=== PATIENT | female | born 2000 | race Caucasian/White ===

== ENCOUNTER 2023-04-20 19:09 | Emergency (ER) | payer BC, SELFPAY ==
--- NOTE | ~2023-04-20 | CT_ITS ---
EXAMINATION: CT abdomen pelvis w con DATE: 04/20/2023 23:08 INDICATION: Periumbilical abdominal pain TECHNIQUE: Computed tomography (CT) of the abdomen and pelvis was performed with 100 mL Omnipaque-350 intravenous contrast. Automated exposure control and iterative reconstruction technique were employe d. The dose-length product was 884.51 mGy-cm. COMPARISON: None FINDINGS: Lung bases are clear. Heart size is normal. No pericardial or pleural effusion. Focal hepatic steatos is at the ligamentum teres. Gallbladder, spleen, pancreas, bilateral adrenal glands and kidneys are n ormal. Bladder, uterus and bilateral adnexa are unremarkable. Bowels including the appendix are marjorie l. No free intraperitoneal gas or fluid. No pathologically enlarged abdominal or pelvic lymphadenopat hy. Tiny fat-containing umbilical hernia. Bones are unremarkable. IMPRESSION: 1. Tiny fat-containing umbilical hernia. No acute intra-abdominal/pelvic process. Reviewed, dictated and finalized at location A. OGICAL SAMPLE [employer]STER IMPRESSION: 1. Tiny fat-containing umbilical hernia. No acute intra-abdominal/pelvic proces s.
[2023-04-20 19:30] VITALS: BP 158/99; PULSE 106; RESP 15; TEMP 37.2; O2SAT 100
[2023-04-20 19:41] LABS: Basophils Absolute Auto 0.1 K/mm3 (0.0-0.1); Basophils Percent Auto 0.6 % (0.2-1.2); Eosinophils Absolute Auto 0.1 K/mm3 (0-0.3); Hematocrit 45.3 % (37.0-47.0); Hemoglobin 15.1 g/dL (12.0-15.0); Immature Granulocyte Absolute 0.02 K/mm3 (0.00-0.031); Immature Granulocyte Percent A 0.3 % (0-0.5); Lymphocytes Absolute Auto 3.52 K/mm3 (0.9-3.2); Lymphocytes Percent Auto 44.7 % (18.3-44.2); Mean Corpuscular HGB Conc 33.3 g/dl (32-36); Mean Corpuscular Hemoglobin 28.6 pg (26-34); Mean Corpuscular Volume 85.8 fl (80-100); Mean Platelet Volume 10.5 fl (7.4-10.4); Monocytes Absolute Auto 0.4 K/mm3 (0.1-0.6); Monocytes Percent Auto 5.2 % (2.6-8.5); Neutrophils Absolute Auto 3.8 K/mm3 (1.3-6.7); Neutrophils Percent Auto 48.2 % (45.5-73.1); Platelet Count Result 325 k/mm3 (150-375); Red Blood Count 5.28 M/mm3 (4.2-5.4); Red Cell Distribution Width 12.3 % (11.5-14.5); White Blood Count 7.9 K/mm3 (4.5-10.0)
[2023-04-20 19:55] LABS: Alanine Aminotransferase 31 U/L (6-35); Albumin Level 4.4 g/dL (3.5-5.1); Alkaline Phosphatase 53 U/L (38-126); Anion Gap 11 mmol/L (8-16); Aspartate Amino Transferase 29 U/L (14-36); Bilirubin,Total 0.3 mg/dL (0.2-1.3); Blood Urea Nitrogen 8 mg/dL (7-17); Calcium 9.4 mg/dL (8.4-10.2); Carbon Dioxide 25 mmol/L (22-30); Chloride 105 mmol/L (98-107); Estimated CRCL calculation 115 ml/min; Estimated Glomerular Filt Rate > 60; Glucose 114 mg/dL (65-110); Lipase 93 U/L (23-300); Potassium 3.9 mmol/L (3.4-5.0); Sodium 141 mmol/L (137-145)
[2023-04-20 20:23] LABS: Appearance Urine Clear (Clear); Bilirubin Urine Negative (Negative); Blood Urine Negative (Negative); Color Urine Yellow (Yellow); Glucose Urine UA Negative (Negative); Ketones Urine Negative (Negative); Leukocyte Esterase Ur Negative LEU/UL (Negative); Nitrate Urine Negative (Negative); Protein Urine Negative (Negative); Specific Grav Ur 1.007 (1.001-1.035); Urobilinogen Urine 0.2 mg/dL (<2.0); pH Urine 6.5 (5.0-9.0)
[2023-04-20 20:31] LABS: Add Urine Microscopic? NO
--- NOTE | 2023-04-20 22:50 | ED.ABDPAIN ---
HPI - Abdominal Pain General Chief Complaint: Abdominal Pain Stated Complaint: stomach pain, bloody diarrhea Time Seen by Provider: 04/20/23 22:00 History of Present Illness HPI narrative: This is a 22-year-old female, with no significant past medical history presents to the emergency department complaining of diarrhea for the past 6 days with development of periumbilical abdominal pain and bright red bloody stools for the past 3 days. She describes the pain as sharp, rated 5/10 and present only during bowel movements, associated with some dull low back pain. She denies other bleeding, fevers or melena. She denies recent travel or known sick contacts. Related Data Allergies Allergy/AdvReac Type Severity Reaction Status Date / Time No Known Allergies Allergy Verified 04/20/23 19:10 Review of Systems Review of Systems: CONSTITUTIONAL: Denies fever, chills, or sweats. CARDIOVASCULAR: Denies chest pain, palpitations, or edema. RESPIRATORY: Denies cough or dyspnea. GASTROINTESTINAL: Periumbilical abdominal pain, diarrhea denies nausea, vomiting GENITOURINARY: Last menstrual period 1 month ago. Denies dysuria or hematuria. SKIN: Denies rash or itching. MUSCULOSKELETAL: Denies back pain, joint pain, or myalgia. NEUROLOGIC: Denies headache, numbness, dizziness, or weakness. PSYCHIATRIC: Denies anxiety or depression. PMFSH Past Medical History Medical History No significant past medical history Surgical History Surgical History No significant past surgical history Family History Family History (Updated 04/20/23 @ 22:55 by Ross Rousseau MD) Mother Carcinoma of colon, Onset Age: 35 Social History Social History (Updated 04/20/23 @ 22:55 by Ross Rousseau MD) Smoking status: Never smoker Alcohol intake: never Substance use: never Exam Narrative: GENERAL: Well-appearing, well-nourished, and in no acute distress. HEAD: Normocephalic, atraumatic. EYES: PERRLA and EOMI. ENT: Nares clear, no rhinorrhea or epistaxis. Mucous membranes moist. Oropharynx without tonsillar hypertrophy exudate or other lesions. CHEST: Clear to auscultation. No respiratory distress. No wheezes rales or rhonchi HEART: Regular rate and rhythm. No murmur heard. Normal peripheral pulses. ABDOMEN: Soft, mild periumbilical tenderness to palpation, no rebound or guarding, nondistended, normal active bowel sounds. No CVA tenderness to palpation RECTAL: (chaperoned by female RN Only) no hemorrhoid or anal fissure noted. No active bleeding noted EXTREMITIES: Normal range of motion. No edema. SKIN: Warm, dry, no rash. NEURO: No focal deficits. Alert and oriented x3. PSYCH: Normal mood and affect. Course Course Emergency Course: 00:17 - CT abdomen pelvis demonstrates a tiny fat containing umbilical hernia but is otherwise unremarkable. CBC demonstrates slightly elevated hemoglobin of 15.1 but is otherwise unremarkable. Chemistries within normal limits. UA concerning for UTI. test was negative. Will discharge with a course of antibiotics for infectious diarrhea. Discussed return and emergency precautions including signs/symptoms of acute abdomen and intractable vomiting. The patient voiced understanding and is comfortable with the plan. All questions answered to her satisfaction. Vital Signs Vital signs: Vital Signs Temperature 98.9 F 04/20/23 19:30 Pulse Rate 106 H 04/20/23 19:30 Respiratory Rate 15 04/20/23 19:30 Blood Pressure 158/99 H 04/20/23 19:30 Pulse Oximetry 100 04/20/23 19:30 Oxygen Delivery Room Air 04/20/23 19:30 Temperature 98.9 F 04/20/23 19:30 Pulse Rate 74 04/21/23 00:36 Respiratory Rate 16 04/21/23 00:36 Blood Pressure 137/80 04/21/23 00:36 Pulse Oximetry 99 04/21/23 00:36 Oxygen Delivery Room Air 04/20/23 19:30 MDM - Abdomina
[2023-04-21 00:36] VITALS: BP 137/80; PULSE 74; RESP 16; O2SAT 99
== END 2023-04-21 00:38 | disposition home or self-care (01) ==
PROVIDERS: Emergency Provider Preventive Medicine Aerospace Medicine
DX: A09 Infectious gastroenteritis and colitis, unspecified (principal); R10.33 Periumbilical pain; K42.9 Umbilical hernia without obstruction or gangrene
CPT/HCPCS: 36415; 74177; 80053; 81003; 81025; 83690; 85025; 99284; Q9967